=== PATIENT | female | born 1975 | race Caucasian/White ===

== ENCOUNTER 2019-03-12 14:29 | Emergency (ER) | payer MEDICAID ==
[~2019-03-12] VITALS: Ht 149.9 cm; Wt 64.0 kg
[~2019-03-12 14:29] MED LIST: FERR-63 PO; IBUP-779 PO; MULT-1116 PO
[2019-03-12] MEDS ORDERED: ACETAMINOPHEN 500MG TABLET PO ONE (16:00)
[2019-03-12 18:20] VITALS: BP 113/76
== END 2019-03-12 18:44 | disposition home or self-care (01) ==
LOC: ER 14:48
DX: S00.03XA Contusion of scalp, initial encounter (principal); Y04.2XXA Assault by strike against or bumped into by another person, initial encounter; Y93.89 Activity, other specified; Y92.038 Other place in apartment as the place of occurrence of the external cause; R03.0 Elevated blood-pressure reading, without diagnosis of hypertension
CPT/HCPCS: 70450; 72040; 72070; 81025; 99284; Z7610